=== PATIENT | male | born 1945 | race Caucasian/White ===

== ENCOUNTER 2019-08-27 09:32 | Emergency (ER) | payer MEDICARE, OTHER ==
[2019-08-27] MEDS ORDERED: Aspirin 81 MG Tab.Chew PO ONE (09:38)
--- NOTE | 2019-08-27 09:56 | EDM.PDOC ---
ED HPI GENERAL MEDICAL PROBLEM - General Stated Complaint: CHEST PAIN Time Seen by Provider: 08/27/19 09:32 Source of Information: Reports: Patient History Limitations: Reports: No Limitations - History of Present Illness INITIAL COMMENTS - FREE TEXT/NARRATIVE: Patient presents with pressure in chest that comes with exertion and goes away with rest. He has noticed this for about two months. At that time he could walk 5 blocks before it would present but has been slowly worsening. Yesterday and today he felt the pressure after less than one block. It still goes away with rest. He still had mild pain in the chest on arrival to ER but is gone now. He denies pain in neck, jaw, arms or shoulders. He says this is the same way he felt in 2005 when he had to have stents placed. He says he didn't have an RI at that time but he did have an RI in 1990 and an angioplasty without stents. He has also felt lightheaded the past two months. He has diabetes with diabetic neuropathy in his legs and they get weak and achy in anterior thighs with walking short to moderate distances. He last saw his PCP two months ago. - Related Data Allergies Allergy/AdvReac Type Severity Reaction Status Date / Time ceftriaxone sodium Allergy Nausea and Verified 08/27/19 10:01 [From Rocephin] Vomiting cephalexin Allergy Nausea and Verified 08/27/19 10:01 Vomiting clindamycin HCl Allergy Hives Verified 08/27/19 10:01 [From Cleocin] clindamycin palmitate HCl Allergy Hives Verified 08/27/19 10:01 [From Cleocin] clindamycin phosphate Allergy Hives Verified 08/27/19 10:01 [From Cleocin] gentamicin [Gentamicin] Allergy Hives Verified 08/27/19 10:01 Home Meds: Home Meds Aspirin [Halfprin] 162 mg PO BRK 12/02/14 [History] Cholecalciferol (Vitamin D3) [Vitamin D3] 2,000 unit PO DAILY 12/02/14 [History] Dutasteride [Avodart] 0.5 mg PO BEDTIME 12/02/14 [History] Gabapentin [Neurontin] 300 mg PO TID 12/02/14 [History] Insulin Glarg,Human.Rec.Analog [LantUS Solostar] 30 units SUBCUT 0900 12/02/14 [ History] Losartan Potassium [Cozaar] 100 mg PO 0900 12/02/14 [History] [place]-3 Fatty Acids [[place]-3] 1,000 mg PO BID 12/02/14 [History] Potassium Chloride [Klor-Con 10] 10 meq PO WITHBREAKFAST 12/02/14 [History] Tamsulosin [Flomax] 0.8 mg PO DAILY 12/02/14 [History] Vitamin B6-pyridOXINE 50 mg PO DAILY 12/02/14 [History] amLODIPine [Norvasc] 10 mg PO DAILY 12/02/14 [History] metFORMIN [Glucophage] 500 mg PO BIDMEALS 12/02/14 [History] hydroCHLOROthiazide [Hydrochlorothiazide] 25 mg PO DAILY 01/12/18 [History] Carbidopa/Levodopa [Sinemet 25-100 mg Tablet] 1.5 tab PO 0600,1000,1400,1800 11/07 [History] ClonazePAM [KlonoPIN] 0.5 mg PO BEDTIME PRN 08/27/19 [History] Docusate Sodium [Colace] 100 mg PO BEDTIME 08/27/19 [History] Docusate Sodium [Colace] 200 mg PO 0800 08/27/19 [History] Ferrous Sulfate [Ferosul] 325 mg PO Q48H 08/27/19 [History] Rosuvastatin [Crestor] 5 mg PO DAILY 08/27/19 [History] Spironolactone [Aldactone] 12.5 mg PO DAILY 08/27/19 [History] calcium polycarbophiL [Fibercon] 2,500 mg PO DAILY 08/27/19 [History] carvediloL [Coreg] 12.5 mg PO BID 08/27/19 [History] Past Medical History HEENT History: Reports: Sinusitis Cardiovascular History: Reports: CAD, High Cholesterol, Hypertension Respiratory History: Reports: Bronchitis, Recurrent, Pneumonia, Recurrent Genitourinary History: Reports: Prostate Disorder Musculoskeletal History: Reports: Back Pain, Chronic, Fracture Neurological History: Reports: TIA Endocrine/Metabolic History: Reports: Diabetes, Type II - Infectious Disease History Infectious Disease History: Reports: Chicken Pox, Measles, Mumps, Rubella - Past Surgical History Musculoskeletal Surgical History: Reports: Arthroscopic Procedure, Joint Replacement Social & Family History - Caffeine Use Caffeine Use: Reports: Soda ED ROS GENERAL - Review of Systems Review Of Systems: See Below Constitutional: Denies: Fever, Chills, Malaise, Weakness, Diaphoresis HEENT: Reports: No Symptoms Respiratory: Reports: Shortness of Breath, Cough (chronic) Cardiovascular: Reports: Chest Pain, Blood Pressure Problem, Lightheadedness. Denies: Syncope GI/Abdominal: Reports: Constipation (from his Parkinson meds). Denies: Abdominal Pain, Diarrhea, Nausea, Vomiting : Denies: Dysuria, Flank Pain Musculoskeletal: Denies: Neck Pain, Shoulder Pain, Arm Pain, Back Pain, Hand Pain, Foot Pain Skin: Denies: Cyanosis, Jaundice, Mottled, Pallor, Diaphoresis Neurological: Denies: Confusion, Dizziness, Headache, Seizure, Syncope, Trouble Speaking, Difficulty Walking Psychiatric: Denies: Agitation, Anxiety, Confusion ED EXAM, GENERAL - Physical Exam Exam: See Below Exam Limited By: No Limitations General Appearance: Alert, WD/WN, No Apparent Distress Eye Exam: Bilateral Eye: EOMI, Normal Inspection, PERRL Ears: Normal External Exam, Hearing Grossly Normal Nose: Normal Inspection, No Blood Throat/Mouth: Normal Inspection, Normal Lips, Normal Voice, No Airway Compromise Head: Atraumatic, Normocephalic Neck: Normal Inspection, Full Range of Motion Respiratory/Chest: No Respiratory Distress, Lungs Clear, Normal Breath Sounds, No Accessory Muscle Use Cardiovascular: Regular Rate, Rhythm, No Murmur GI/Abdominal: Normal Bowel Sounds, Soft, Non-Tender, No Organomegaly, No Distention, No Abnormal Bruit Back Exam: Normal Inspection, Full Range of Motion. No: CVA Tenderness (L), CVA Tenderness (R) Extremities: Normal Inspection, Normal Range of Motion Neurological: Alert, Oriented, Normal Cognition, No Motor/Sensory Deficits Psychiatric: Normal Affect, Normal Mood Skin Exam: Warm, Dry, Intact, Normal Color, No Rash Course - Vital Signs Last Recorded V/S: Last Vital Signs Temp 97.5 F 08/27/19 11:12 Pulse 59 L 08/27/19 11:12 Resp 14 08/27/19 11:12 BP 160/63 H 08/27/19 11:12 Pulse Ox 97 08/27/19 11:12 - Orders/Labs/Meds Orders: Active Orders 24 hr Category Date Time Status EKG Documentation Completion [RC] ASDIRECTED Care 08/27/19 09:39 Active EKG 12 Lead [EK] Stat Ther 08/27/19 09:30 Ordered Labs: Laboratory Tests 08/27/19 08/27/19 Range/Units 10:00 10:00 WBC 5.33 (5.00-10.00) 10^3/uL RBC 4.12 L (4.50-6.00) 10^6/uL Hgb 13.2 (13.0-17.0) g/dL Hct 39.3 L (40.0-52.0) % MCV 95.4 H (82.0-92.0) fL MCH 32.0 H (27.0-31.0) pg MCHC 33.6 (32.0-36.0) g/dL RDW 12.5 (11.5-14.5) % Plt Count 187 (150-400) 10^3/uL MPV 9.8 (7.4-10.4) fL Immature Gran % (Auto) 0.0 (0.0-5.0) % Neut % (Auto) 63.2 (50.0-70.0) % Lymph % (Auto) 22.5 (20.0-40.0) % [place] % (Auto) 9.8 H (2.0-8.0) % Eos % (Auto) 3.6 H (1.0-3.0) % Baso % (Auto) 0.9 (0.0-1.0) % Neut # (Auto) 3.37 (2.50-7.00) 10^3/uL Lymph # (Auto) 1.20 (1.00-4.00) 10^3/uL [place] # (Auto) 0.52 (0.10-0.80) 10^3/uL Eos # (Auto) 0.19 (0.10-0.30) 10^3/uL Baso # (Auto) 0.05 (0.00-0.10) 10^3/uL Immature Gran # (Auto) 0.00 (0.00-0.50) 10^3/uL Sodium 141 (136-145) mmol/L Potassium 4.1 (3.3-5.3) mmol/L Chloride 103 (98-115) mmol/L Carbon Dioxide 26.1 (21.0-32.0) mmol/L Anion Gap 16.0 H (5-15) mmol/L BUN 17 (6-25) mg/dL Creatinine 0.82 (0.51-1.17) mg/dL Est Cr Clr Drug Dosing 80.37 mL/min Estimated GFR (MDRD) > 60 mL/min Glucose 153 H (75 - 99) mg/dL Calcium 9.0 (8.7-10.3) mg/dL Total Bilirubin 0.4 (0.2-1.0) mg/dL AST 14 L (15-37) U/L ALT 14 (12-78) U/L Alkaline Phosphatase 54 (46-116) IU/L Troponin I 0.10 H* (0.00-0.070) ng/mL Total Protein 7.2 (6.4-8.2) g/dL Albumin 3.89 (3.00-4.80) g/dL Meds: Medications Discontinued Medications Generic Name Dose Route Start Last Admin Trade Name Freq PRN Reason Stop Dose Admin Aspirin 324 mg 08/27/19 09:38 08/27/19 09:43 Aspirin PO 08/27/19 09:39 324 mg ONETIME ONE Administration Carbidopa/Levodopa 1.5 tab 08/27/19 11:18 08/27/19 11:35 Sinemet 25-100 Mg PO 08/27/19 11:19 1.5 tab ONETIME ONE Administration Carbidopa/Levodopa 1.5 tab 08/27/19 13:56 Sinemet 25-100 Mg PO 08/27/19 13:57 ONETIME ONE - Re-Assessments/Exams Free Text/Narrative Re-Assessment/Exam: 08/27/19 10:12 Aspirin 324 mg chewable was given on arrival. EKG looks okay with just a mild 1st degree AV block. He has inverted T-waves in III, AVF unchanged from 2018 on comparison. 08/27/19 11:22 Troponin is 0.10. Discussed findings and recommendations with patient and will transfer to [facility]. Discussed case with Dr. Awad, hospitalist, who accepted for transfer. Patient remains asymptomatic currently. 08/27/19 14:51 Patient just left our ER for transfer to [facility]. He has been asymptomatic during the delay. We called [facility] 3 times to check on status and were informed they didn't have any space for him unless we felt he was unstable and should be taken to the ER there. We were just thinking we could recheck troponin since he has been here so long but then they called with available bed and he was transferred. Departure - Departure Time of Disposition: 11:24 Disposition: DC/Tfer to Acute Hospital 02 Reason for Transfer *Q: Other (evaluation and likely angiogram) Condition: Good Clinical Impression: NSTEMI (non-ST elevated myocardial infarction), Unstable angina Referrals: Farrah Sarmiento MD [Primary Care Provider] - Sepsis Event Note - Focused Exam Vital Signs: Vital Signs Temp Pulse Resp BP Pulse Ox 08/27/19 11:12 97.5 F 59 L 14 160/63 H 97 08/27/19 10:40 67 20 139/50 L 96 08/27/19 10:25 61 16 114/49 L 96 08/27/19 10:15 62 14 137/56 L 95 08/27/19 09:55 61 19 128/52 L 94 L 08/27/19 09:37 98.6 F 66 19 144/58 H 95 Date Exam was Performed: 08/27/19 Time Exam was Performed: 14:51 - My Orders Last 24 Hours: My Active Orders 08/27/19 09:30 EKG 12 Lead [EK] Stat 08/27/19 09:39 EKG Documentation Completion [RC] ASDIRECTED - Assessment/Plan Last 24 Hours: My Active Orders 08/27/19 09:30 EKG 12 Lead [EK] Stat 08/27/19 09:39 EKG Documentation Completion [RC] ASDIRECTED
[2019-08-27 10:33] LABS: CHLORIDE,CL 103 mmol/L (98-115); SODIUM,NA 141 mmol/L (136-145)
[2019-08-27 11:13] VITALS: BP 160/63; PULSE 59
[2019-08-27] MEDS ORDERED: Carbidopa/Levodopa 25-100 MG Tab PO ONE ×2 (11:18→13:56)
== END 2019-08-27 14:30 ==
LOC: KA.ED 09:32
DX: I21.4 Non-ST elevation (NSTEMI) myocardial infarction (principal); I25.110 Atherosclerotic heart disease of native coronary artery with unstable angina pectoris; E78.00 Pure hypercholesterolemia, unspecified; I10 Essential (primary) hypertension; E11.9 Type 2 diabetes mellitus without complications; Z86.73 Personal history of transient ischemic attack (TIA), and cerebral infarction without residual deficits; Z88.1 Allergy status to other antibiotic agents; Z88.8 Allergy status to other drugs, medicaments and biological substances; Z79.82 Long term (current) use of aspirin; Z79.4 Long term (current) use of insulin; Z79.899 Other long term (current) drug therapy
CPT/HCPCS: 36415; 80053; 84484; 85025; 93005; 99284; 99285; A9270

== ENCOUNTER 2020-02-29 08:51 | Inpatient (IN) | payer MEDICARE, OTHER ==
[2020-03-01] MEDS ORDERED: Glucagon,Human Recombinant 1 MG Vial IM PRN (17:48)
[2020-03-01] MEDS ORDERED: 50% Dextrose in Water 50 ML Syringe IV PRN (17:48)
[2020-03-01] MEDS: Ferrous Sulfate 325 MG Tab PO SCH (19:10)
[2020-03-01] MEDS: Carbidopa/Levodopa 25-100 MG Tab PO SCH (19:10)
[2020-03-01] MEDS: Carvedilol 12.5 MG Tab PO SCH (19:11)
[2020-03-01] MEDS: Tamsulosin 0.4 MG Cap.ER PO SCH (20:17)
[2020-03-01] MEDS: Gabapentin 300 MG Cap PO SCH (20:17)
[2020-03-01] MEDS: Dutasteride 0.5 MG Cap PO SCH (20:26)
[2020-03-01] MEDS: Rosuvastatin 5 MG Tab PO SCH (20:27)
[2020-03-02] MEDS: Acetaminophen/oxyCODONE 325-5 MG Tab PO PRN ×4 (02:51→21:37)
[2020-03-02] MEDS: Carbidopa/Levodopa 25-100 MG Tab PO SCH ×4 (05:50→17:55)
[2020-03-02] MEDS: Hydrochlorothiazide 25 MG Tab PO SCH (08:36)
[2020-03-02] MEDS: Calcium Polycarbophil 625 MG Tab PO SCH (08:36)
[2020-03-02] MEDS: Docusate Sodium 100 MG Cap PO SCH (08:36)
[2020-03-02] MEDS: Cholecalciferol (Vitamin D3) 25 MCG Tab PO SCH (08:37)
[2020-03-02] MEDS: Insulin Glargine,Human Rec. Analog 100 Units/ML 3 ML Pen SUBCUT SCH (08:38)
[2020-03-02] MEDS: Aspirin 81 MG Tab.Chew PO SCH (08:38)
[2020-03-02] MEDS: amLODIPine 5 MG Tab PO SCH (08:40)
[2020-03-02] MEDS: Carvedilol 12.5 MG Tab PO SCH ×2 (08:41→17:55)
[2020-03-02] MEDS: Losartan 25 MG Tab PO SCH (08:41)
--- NOTE | 2020-03-02 10:15 | PCM.HP.2 ---
H&P History of Present Illness - General Date of Service: 03/02/20 Admit Problem/Dx: Admission Diagnosis/Problem Admission Diagnosis/Problem Weakness Lower Back Pain Score (Numeric/FACES): 4 - Related Data Allergies/Adverse Reactions: Allergies Allergy/AdvReac Type Severity Reaction Status Date / Time ceftriaxone sodium Allergy Nausea and Verified 02/28/20 16:54 [From Rocephin] Vomiting cephalexin Allergy Nausea and Verified 02/28/20 16:54 Vomiting clindamycin HCl Allergy Hives Verified 02/28/20 16:54 [From Cleocin] clindamycin palmitate HCl Allergy Hives Verified 02/28/20 16:54 [From Cleocin] clindamycin phosphate Allergy Hives Verified 02/28/20 16:54 [From Cleocin] gentamicin [Gentamicin] Allergy Hives Verified 02/28/20 16:54 Home Medications: Home Meds Cholecalciferol (Vitamin D3) [Vitamin D3] 2,000 unit PO DAILY 12/02/14 [History] Dutasteride [Avodart] 0.5 mg PO BEDTIME 12/02/14 [History] Insulin Glarg,Human.Rec.Analog [LantUS Solostar] 30 units SUBCUT DAILY 12/02/14 [History] [place]-3 Fatty Acids [[place]-3] 1,000 mg PO DAILY 12/02/14 [History] Tamsulosin [Flomax] 0.8 mg PO BEDTIME 12/02/14 [History] Vitamin B6-pyridOXINE 50 mg PO DAILY 12/02/14 [History] amLODIPine [Norvasc] 10 mg PO DAILY 12/02/14 [History] metFORMIN [Glucophage] 500 mg PO BIDMEALS 12/02/14 [History] hydroCHLOROthiazide [Hydrochlorothiazide] 12.5 mg PO DAILY 01/12/18 [History] Carbidopa/Levodopa [Sinemet 25-100 mg Tablet] 1.5 tab PO 0630,1000,1400,1800 08/27/19 [History] Docusate Sodium [Colace] 200 mg PO DAILY 08/27/19 [History] Ferrous Sulfate [Ferosul] 325 mg PO Q48H 08/27/19 [History] Rosuvastatin [Crestor] 5 mg PO BEDTIME 08/27/19 [History] carvediloL [Coreg] 12.5 mg PO BIDMEALS 08/27/19 [History] Gabapentin [Neurontin] 300 mg PO BEDTIME 02/28/20 [History] Losartan [Cozaar] 25 mg PO DAILY 02/28/20 [History] Sennosides/Docusate Sodium [Senna-S] 1 tab PO BEDTIME 02/28/20 [History] Aspirin 81 mg PO DAILY 03/01/20 [History] calcium polycarbophiL [Fiber Tabs] 1,250 mg PO DAILY 03/01/20 [History] oxyCODONE HCl/Acetaminophen [Oxycodone-Acetaminophen 5-325] 1 - 2 tab PO Q4H PRN 03/01/20 [History] Past Medical History HEENT History: Reports: Cataract, Sinusitis Cardiovascular History: Reports: Bypass, CAD, High Cholesterol, Hypertension Other Cardiovascular History: CABG x3 done in August 29, 2019 Respiratory History: Reports: Bronchitis, Recurrent, Pneumonia, Recurrent, Sleep Apnea Other Respiratory History: uses CPAP Gastrointestinal History: Reports: Chronic Constipation Genitourinary History: Reports: Prostate Disorder Musculoskeletal History: Reports: Back Pain, Chronic, Fracture Neurological History: Reports: Parkinson's, TIA Psychiatric History: Reports: Anxiety Endocrine/Metabolic History: Reports: Diabetes, Type II, Obesity/BMI 30+ Hematologic History: Reports: Anticoagulation Therapy, Iron Deficiency Immunologic History: Reports: None Oncologic (Cancer) History: Reports: None Dermatologic History: Reports: None - Infectious Disease History Infectious Disease History: Reports: Chicken Pox, Measles, Mumps, Rubella - Past Surgical History HEENT Surgical History: Reports: None Cardiovascular Surgical History: Reports: Coronary Artery Bypass GI Surgical History: Reports: Appendectomy, Colonoscopy, Hernia Repair/Other Neurological Surgical History: Reports: Lumbar Spine, Spinal Fusion Musculoskeletal Surgical History: Reports: Arthroscopic Procedure, Joint Replacement, Other (See Below) Other Musculoskeletal Surgeries/Procedures:: Lumbar decompression feb 25 Social & Family History - Family History Family Medical History: No Pertinent Family History - Tobacco Use Tobacco Use Status *Q: Former Tobacco User Used Tobacco, but Quit: Yes Month/Year Tobacco Last Used: 1974 - Caffeine Use Caffeine Use: Reports: Soda Other Caffeine Use: 1 bottle a day - Recreational Drug Use Recreational Drug Use: No H&P Review of Systems - Review of Systems: Review Of Systems: See Below General: Reports: Fever (low grade), Weakness, Fatigue. Denies: Night Sweats, Diaphoresis, Decreased Appetite HEENT: Reports: No Symptoms Pulmonary: Reports: No Symptoms Cardiovascular: Reports: No Symptoms Gastrointestinal: Denies: Constipation, Diarrhea, Distension Genitourinary: Reports: No Symptoms Musculoskeletal: Reports: Other (bilateral leg pains) Skin: Reports: Bruising, Wound Psychiatric: Reports: No Symptoms Neurological: Reports: Pre-Existing Deficit, Tremors, Difficulty Walking, Weakness, Gait Disturbance. Denies: Numbness, Paresthesia, Tingling Hematologic/Lymphatic: Denies: Easy Bleeding Immunologic: Reports: No Symptoms Exam - Exam Exam: See Below - Vital Signs Vital Signs: Last Vital Signs Temp 99.5 F 03/02/20 06:39 Pulse 72 03/02/20 08:41 Resp 20 03/02/20 06:39 BP 144/57 H 03/02/20 08:41 Pulse Ox 95 03/02/20 06:39 Weight: 212 lb - Exam Quality Assessment: DVT Prophylaxis. No: Supplemental Oxygen General: Alert, Oriented, 4 HEENT: Mucosa Moist & [place] Neck: Supple, Trachea Midline, 2 Lungs: Clear to Auscultation, Normal Respiratory Effort Cardiovascular: Regular Rate, Regular Rhythm, Normal S1, Normal S2 GI/Abdominal Exam: Soft, Non-Tender. No: Distended, Guarding, Rigid, Rebound, Tender (Male) Exam: No: Rash Rectal (Males) Exam: Deferred Back Exam: Paraspinal Tenderness. No: CVA Tenderness (L), CVA Tenderness (R) Extremities: No Pedal Edema Peripheral Pulses: 0: Radial (R) (hx of cabg 08/2019), 2+: Radial (L) Skin: Wound, Incision, Other (Lumbar incision dressing intact, flank incision mild drainage mervin intact) Neuro Extensive - Mental Status: Alert, Memory Intact Neuro Extensive - Motor, Sensory, Reflexes: Abnormal Reflexes (No patella tendon reflex, present on admission, patient states baseline). No: Dysarthria, Receptive Aphasia, Expressive Aphasia, Total Aphasia, Facial palsy (L), Facial Palsy (R) DTR: 0: Patella (L), Patella (R) Psychiatric: Alert, Labile Mood - Patient Data Lab Results Last 24 hrs: Laboratory Results - last 24 hr 03/02/20 Range/Units 08:02 POC Glucose 143 H (74-100) mg/dL Result Diagrams: 03/03/20 07:12 03/03/20 07:12 Sepsis Event Note - Evaluation Sepsis Screening Result: No Definite Risk - Focused Exam Vital Signs: Vital Signs Temp Pulse Pulse Resp BP BP Pulse Ox 03/02/20 08:41 72 144/57 H 03/02/20 08:40 144/57 H 03/02/20 06:39 99.5 F 76 20 144/53 H 95 Problem List Initiated/Reviewed/Updated: Yes Orders Last 24hrs: Active Orders 24 hr Category Date Time Status Patient Status [ADT] Routine ADT 03/01/20 18:10 Active Blood Glucose Check, Bedside [RC] DAILY Care 03/02/20 07:30 Active Communication Order [RC] Care 03/01/20 18:36 Active Communication Order [RC] Care 03/01/20 18:39 Active Intake and Output [RC] 1400,2200,0600 Care 03/01/20 18:10 Active Oxygen Therapy [RC] PRN Care 03/01/20 18:10 Active RT Incentive Spirometry [RC] Q2HWA Care 03/01/20 18:30 Active Up With Assistance [RC] ASDIRECTED Care 03/01/20 18:10 Active VTE/DVT Education [RC] PER UNIT ROUTINE Care 03/01/20 18:10 Active Vital Signs [RC] 07,19 Care 03/01/20 18:10 Active PT Evaluation and Treatment [CONS] Routine Cons 03/01/20 18:10 Active [place] [employer] Diet [DIET] Diet 03/02/20 Breakfast Active Acetaminophen/oxyCODONE [Percocet 325-5 MG] Med 03/01/20 17:48 Active 1 - 2 tab PO Q4H PRN Aspirin Med 03/02/20 09:00 Active 81 mg PO DAILY Carbidopa/Levodopa [Sinemet 25-100 mg] Med 03/01/20 18:00 Active 1.5 tab PO 0630,1000,1400,1800 Cholecalciferol (Vitamin D3) [Vitamin D3] Med 03/02/20 09:00 Active 50 mcg PO DAILY Dextrose 50% in Water Med 03/01/20 17:48 Active 50 ml IV ASDIRECTED PRN Docusate Sodium [Colace] Med 03/02/20 09:00 Active 200 mg PO DAILY Docusate Sodium/Sennosides [Senna Plus] Med 03/01/20 21:00 Active 1 tab PO BEDTIME Dutasteride [Avodart] Med 03/01/20 21:00 Active 0.5 mg PO BEDTIME Ferrous Sulfate Med 03/01/20 18:00 Active 325 mg PO Q48H Gabapentin [Neurontin] Med 03/01/20 21:00 Active 300 mg PO BEDTIME Glucagon,Human Recombinant [GlucaGen] Med 03/01/20 17:48 Active 1 mg IM ASDIRECTED PRN Insulin Glarg,Human.Rec.Analog [LantUS Solostar] Med 03/02/20 09:00 Active 30 units SUBCUT DAILY Losartan [Cozaar] Med 03/02/20 09:00 Active 25 mg PO DAILY Rosuvastatin [Crestor] Med 03/01/20 21:00 Active 5 mg PO BEDTIME Tamsulosin [Flomax] Med 03/01/20 21:00 Active 0.8 mg PO BEDTIME Vitamin B6-pyridOXINE [Vitamin B6-pyridOXINE] Med 03/02/20 09:00 Pending 50 mg PO DAILY amLODIPine [Norvasc] Med 03/02/20 09:00 Active 10 mg PO DAILY calcium polycarbophiL [Fibercon] Med 03/02/20 09:00 Active 1,250 mg PO DAILY carvediloL [Coreg] Med 03/01/20 18:00 Active 12.5 mg PO BIDMEALS hydroCHLOROthiazide Med 03/02/20 09:00 Active 12.5 mg PO DAILY Resuscitation Status Routine Resus Stat 03/01/20 18:10 Ordered Medication Orders Amlodipine Besylate (Norvasc) 10 mg PO DAILY [facility] Last Admin: 03/02/20 08:40 Dose: 10 mg Documented by: ANISA Aspirin (Aspirin) 81 mg PO DAILY [facility] Last Admin: 03/02/20 08:38 Dose: 81 mg Documented by: ANISA Calcium Polycarbophil (Fibercon) 1,250 mg PO DAILY [facility] Last Admin: 03/02/20 08:36 Dose: 1,250 mg Documented by: ANISA Carbidopa/Levodopa (Sinemet 25-100 Mg) 1.5 tab PO 0630,1000,1400,1800 [facility] Last Admin: 03/02/20 10:09 Dose: 1.5 tab Documented by: Admin: 03/02/20 05:50 Dose: 1.5 tab Documented by: Admin: 03/01/20 19:10 Dose: 1.5 tab Documented by: ANISA Carvedilol (Coreg) 12.5 mg PO BIDMEALS [facility] Last Admin: 03/02/20 08:41 Dose: 12.5 mg Documented by: Admin: 03/01/20 19:11 Dose: 12.5 mg Documented by: ANISA Cholecalciferol (Vitamin D3) 50 mcg PO DAILY [facility] Last Admin: 03/02/20 08:37 Dose: 50 mcg Documented by: ANISA Dextrose/Water (Dextrose 50% In Water) 50 ml IV ASDIRECTED PRN PRN Reason: Hypoglycemia Docusate Sodium (Colace) 200 mg PO DAILY [facility] Last Admin: 03/02/20 08:36 Dose: 200 mg Documented by: ANISA Dutasteride (Avodart) 0.5 mg PO BEDTIME [facility] Last Admin: 03/01/20 20:26 Dose: 0.5 mg Documented by: BRANDON Ferrous Sulfate (Ferrous Sulfate) 325 mg PO Q48H [facility] Last Admin: 03/01/20 19:10 Dose: 325 mg Documented by: ANISA Gabapentin (Neurontin) 300 mg PO BEDTIME [facility] Last Admin: 03/01/20 20:17 Dose: 300 mg Documented by: BRANDON Glucagon (Glucagen) 1 mg IM ASDIRECTED PRN PRN Reason: Hypoglycemia Hydrochlorothiazide (Hydrochlorothiazide) 12.5 mg PO DAILY [facility] Last Admin: 03/02/20 08:36 Dose: 12.5 mg Documented by: ANISA Insulin Glargine (Lantus Solostar) 30 units SUBCUT DAILY [facility] Last Admin: 03/02/20 08:38 Dose: 30 units Documented by: ANISA Losartan Potassium (Cozaar) 25 mg PO DAILY [facility] Last Admin: 03/02/20 08:41 Dose: 25 mg Documented by: ANISA Non-Formulary Medication (Vitamin B6-Pyridoxine [Vitamin B6-Pyridoxine]) 50 mg PO DAILY [facility] Oxycodone/Acetaminophen (Percocet 325-5 Mg) 1 - 2 tab PO Q4H PRN PRN Reason: Pain Last Admin: 03/02/20 02:51 Dose: 1 tab Documented by: SANTRYA Rosuvastatin Calcium (Crestor) 5 mg PO BEDTIME [facility] Last Admin: 03/01/20 20:27 Dose: 5 mg Documented by: BRANDON Senna/Docusate Sodium (Senna Plus) 1 tab PO BEDTIME [facility] Last Admin: 03/01/20 20:17 Dose: 1 tab Documented by: BRANDON Tamsulosin HCl (Flomax) 0.8 mg PO BEDTIME [facility] Last Admin: 03/01/20 20:17 Dose: 0.8 mg Documented by: BRANDON Assessment/Plan Comment:: History of Present Illness 74 y/[facility] patient is s/p lumbar lateral interbody fusion of L2/L4 repeat decompression by Dr. Demarco Mei DOS 02/29/2020. Patient was fit with a custom fabricated TLSO and is to wear while ambulating x6 months Labs [place] 02/27; 10 WBC 8.7, Hgb/HCT 9.5/28.9 PLT 140,000 calcium 3.8 BUN 23 creatinine 1.08, Alb 3.5 Hospital course 03/02/2020; Patient is doing well, some pain in the legs as expected, ambulating with walker, BM this morning, ZACH drain pulled, using TLSO, Running low-grade fevers however this is baseline according to [place] EMR, encouraged to use spirometer, Nurses reporting mild sundowning confustion/hallucinations Primary SNF problems S/P Lumbar decompression surgery, DOS 02/29/2020. Pain, hydrocodone Chronic SNF problems T2DM; A1c 6.3% Lantus, Metformin, FSBS CAD, CABG, August/2019, ASA, completed rehab, successful Hypertension, HCTZ, amlodipine, Coreg, ARB Hyperlipidemia, statin Venous insufficiency Obstructive sleep apnea, home CPAP Insomnia, clonazepam Parkinson's disease, carbidopa levodopa BPH, tamsulosin, Avodart Rheumatoid arthritis Disposition/overall plan --Patient meets qualification for nursing home here at [place], PT/OT --Goals, OT goals, bathing, bed mobility, toileting and transfers activity, TLSO precautions dressings --Spirometer 10x every hour while awake --Change dressing only if saturated, Shower with dressing --Stable removal ~Feb --Aquacel on suture line DC March 07 --DVT prophylaxis teds, ASA, Ambulation --Add Movantik for COT prevention --Delirium prophylaxis, add Rozerem, and ear plugs PRN --Labs Tuesday --Aquacel dressing to be removed on March 07, apply dry gauze and change daily --Follow up Dr Reid in 1-2 weeks, call on tuesday (03-03-20) to set up an appointment --Code Status, full code --Contacts, Spouse, Ivonne - Mortality Measure Prognosis:: Good
[2020-03-02] MEDS: Naloxegol Oxalate 25 MG Tab PO SCH (13:31)
[2020-03-02] MEDS: Tamsulosin 0.4 MG Cap.ER PO SCH (20:22)
[2020-03-02] MEDS: Gabapentin 300 MG Cap PO SCH (20:22)
[2020-03-02] MEDS: Dutasteride 0.5 MG Cap PO SCH (20:25)
[2020-03-02] MEDS: Rosuvastatin 5 MG Tab PO SCH (20:26)
[2020-03-03] MEDS: Acetaminophen/oxyCODONE 325-5 MG Tab PO PRN ×4 (06:00→21:36)
[2020-03-03] MEDS: Carbidopa/Levodopa 25-100 MG Tab PO SCH ×4 (06:00→17:37)
[2020-03-03 07:58] LABS: ANION GAP 9.6 mmol/L (5-15); CHLORIDE,CL 100 mmol/L (98-115); SODIUM,NA 138 mmol/L (136-145)
[2020-03-03] MEDS: Carvedilol 12.5 MG Tab PO SCH ×2 (08:12→17:41)
[2020-03-03] MEDS: amLODIPine 5 MG Tab PO SCH (08:13)
[2020-03-03] MEDS: Losartan 25 MG Tab PO SCH (08:13)
[2020-03-03] MEDS: Docusate Sodium 100 MG Cap PO SCH (08:13)
[2020-03-03] MEDS: Cholecalciferol (Vitamin D3) 25 MCG Tab PO SCH (08:13)
[2020-03-03] MEDS: Calcium Polycarbophil 625 MG Tab PO SCH (08:13)
[2020-03-03] MEDS: Naloxegol Oxalate 25 MG Tab PO SCH (08:14)
[2020-03-03] MEDS: Aspirin 81 MG Tab.Chew PO SCH (08:14)
[2020-03-03] MEDS: Hydrochlorothiazide 25 MG Tab PO SCH (08:15)
[2020-03-03] MEDS: Insulin Glargine,Human Rec. Analog 100 Units/ML 3 ML Pen SUBCUT SCH (08:16)
[2020-03-03] MEDS: VITAMIN B6 PO SCH (11:29)
[2020-03-03] MEDS: Ferrous Sulfate 325 MG Tab PO SCH (17:37)
[2020-03-03] MEDS: Rosuvastatin 5 MG Tab PO SCH (20:12)
[2020-03-03] MEDS: Gabapentin 300 MG Cap PO SCH (20:12)
[2020-03-03] MEDS: Tamsulosin 0.4 MG Cap.ER PO SCH (20:12)
[2020-03-03] MEDS: Dutasteride 0.5 MG Cap PO SCH (20:44)
[2020-03-04] MEDS: Acetaminophen/oxyCODONE 325-5 MG Tab PO PRN ×4 (02:53→20:30)
[2020-03-04] MEDS: Carbidopa/Levodopa 25-100 MG Tab PO SCH ×4 (05:59→17:49)
[2020-03-04] MEDS: Carvedilol 12.5 MG Tab PO SCH ×2 (08:11→17:49)
[2020-03-04] MEDS: Losartan 25 MG Tab PO SCH (08:12)
[2020-03-04] MEDS: Naloxegol Oxalate 25 MG Tab PO SCH (08:12)
[2020-03-04] MEDS: Hydrochlorothiazide 25 MG Tab PO SCH (08:13)
[2020-03-04] MEDS: Calcium Polycarbophil 625 MG Tab PO SCH (08:14)
[2020-03-04] MEDS: amLODIPine 5 MG Tab PO SCH (08:14)
[2020-03-04] MEDS: Insulin Glargine,Human Rec. Analog 100 Units/ML 3 ML Pen SUBCUT SCH (08:14)
[2020-03-04] MEDS: Docusate Sodium 100 MG Cap PO SCH (08:14)
[2020-03-04] MEDS: Aspirin 81 MG Tab.Chew PO SCH (08:14)
[2020-03-04] MEDS: Cholecalciferol (Vitamin D3) 25 MCG Tab PO SCH (08:14)
[2020-03-04] MEDS: VITAMIN B6 PO SCH (10:09)
[2020-03-04] MEDS: Dutasteride 0.5 MG Cap PO SCH (20:31)
[2020-03-04] MEDS: Rosuvastatin 5 MG Tab PO SCH (20:31)
[2020-03-04] MEDS: Tamsulosin 0.4 MG Cap.ER PO SCH (20:31)
[2020-03-04] MEDS: Gabapentin 300 MG Cap PO SCH (20:32)
[2020-03-05] MEDS: Acetaminophen/oxyCODONE 325-5 MG Tab PO PRN ×5 (00:49→21:34)
[2020-03-05] MEDS: Carbidopa/Levodopa 25-100 MG Tab PO SCH ×4 (07:43→18:04)
[2020-03-05] MEDS: Carvedilol 12.5 MG Tab PO SCH ×2 (08:54→18:05)
[2020-03-05] MEDS: Cholecalciferol (Vitamin D3) 25 MCG Tab PO SCH (08:55)
[2020-03-05] MEDS: Aspirin 81 MG Tab.Chew PO SCH (08:55)
[2020-03-05] MEDS: Docusate Sodium 100 MG Cap PO SCH (08:57)
[2020-03-05] MEDS: amLODIPine 5 MG Tab PO SCH (08:58)
[2020-03-05] MEDS: Naloxegol Oxalate 25 MG Tab PO SCH (08:58)
[2020-03-05] MEDS: Calcium Polycarbophil 625 MG Tab PO SCH (09:04)
[2020-03-05] MEDS: Insulin Glargine,Human Rec. Analog 100 Units/ML 3 ML Pen SUBCUT SCH (09:05)
[2020-03-05] MEDS: Losartan 25 MG Tab PO SCH (09:07)
[2020-03-05] MEDS: VITAMIN B6 PO SCH (09:09)
[2020-03-05] MEDS: Hydrochlorothiazide 25 MG Tab PO SCH (09:16)
[2020-03-05] MEDS: Ferrous Sulfate 325 MG Tab PO SCH (18:04)
[2020-03-05] MEDS: Dutasteride 0.5 MG Cap PO SCH (20:07)
[2020-03-05] MEDS: Tamsulosin 0.4 MG Cap.ER PO SCH (20:07)
[2020-03-05] MEDS: Rosuvastatin 5 MG Tab PO SCH (20:07)
[2020-03-05] MEDS: Gabapentin 300 MG Cap PO SCH (20:07)
[2020-03-06] MEDS: Acetaminophen/oxyCODONE 325-5 MG Tab PO PRN ×4 (01:34→20:55)
[2020-03-06] MEDS: Carbidopa/Levodopa 25-100 MG Tab PO SCH ×4 (07:29→18:20)
[2020-03-06] MEDS: Calcium Polycarbophil 625 MG Tab PO SCH (08:32)
[2020-03-06] MEDS: Carvedilol 12.5 MG Tab PO SCH ×2 (08:32→18:19)
[2020-03-06] MEDS: Cholecalciferol (Vitamin D3) 25 MCG Tab PO SCH (08:33)
[2020-03-06] MEDS: Naloxegol Oxalate 25 MG Tab PO SCH (08:35)
[2020-03-06] MEDS: Docusate Sodium 100 MG Cap PO SCH (08:35)
[2020-03-06] MEDS: Aspirin 81 MG Tab.Chew PO SCH (08:36)
[2020-03-06] MEDS: amLODIPine 5 MG Tab PO SCH (08:37)
[2020-03-06] MEDS: Losartan 25 MG Tab PO SCH (08:38)
[2020-03-06] MEDS: Hydrochlorothiazide 25 MG Tab PO SCH (08:39)
[2020-03-06] MEDS: VITAMIN B6 PO SCH (08:41)
[2020-03-06] MEDS: Insulin Glargine,Human Rec. Analog 100 Units/ML 3 ML Pen SUBCUT SCH (08:41)
[2020-03-06] MEDS: Rosuvastatin 5 MG Tab PO SCH (20:55)
[2020-03-06] MEDS: Gabapentin 300 MG Cap PO SCH (20:55)
[2020-03-06] MEDS: Dutasteride 0.5 MG Cap PO SCH (20:55)
[2020-03-06] MEDS: Tamsulosin 0.4 MG Cap.ER PO SCH (20:59)
[2020-03-07] MEDS: Acetaminophen/oxyCODONE 325-5 MG Tab PO PRN ×3 (05:40→19:49)
[2020-03-07] MEDS: Carbidopa/Levodopa 25-100 MG Tab PO SCH ×4 (05:58→18:25)
[2020-03-07] MEDS: Cholecalciferol (Vitamin D3) 25 MCG Tab PO SCH (08:24)
[2020-03-07] MEDS: Naloxegol Oxalate 25 MG Tab PO SCH (08:24)
[2020-03-07] MEDS: VITAMIN B6 PO SCH (08:24)
[2020-03-07] MEDS: Calcium Polycarbophil 625 MG Tab PO SCH (08:24)
[2020-03-07] MEDS: amLODIPine 5 MG Tab PO SCH (08:24)
[2020-03-07] MEDS: Hydrochlorothiazide 25 MG Tab PO SCH (08:25)
[2020-03-07] MEDS: Docusate Sodium 100 MG Cap PO SCH (08:25)
[2020-03-07] MEDS: Carvedilol 12.5 MG Tab PO SCH ×2 (08:25→18:25)
[2020-03-07] MEDS: Losartan 25 MG Tab PO SCH (08:25)
[2020-03-07] MEDS: Insulin Glargine,Human Rec. Analog 100 Units/ML 3 ML Pen SUBCUT SCH (08:28)
[2020-03-07] MEDS ORDERED: Aspirin 81 MG Tab.Chew PO SCH (09:00)
--- NOTE | 2020-03-07 14:06 | PCM.PN ---
- General Info Date of Service: 03/07/20 Admission Dx/Problem (Free Text): s/p LLIF/PSR L2-4, left L2/3 decompression. Patient is in swing bed at the [facility] and seen at bedside today. Subjective Update: Pee is status post LLIF/PSR L2-4 left L2/[address] Pal approximately 10 days out. He is doing very well. He reports his pain has been well controlled. His leg pain is much improved. His preoperative radicular pain he feels is mostly resolved. Working with therapy for his ambulation and strength. He reports he walks about 4 times a day and is tolerating this well. His main difficulty is sleeping at night he feels this is related to some anxiety. His primary care is addressing this. He is not having any problems with his incisions and they have been clean and dry. He is tentatively scheduled to go home this coming Tuesday. Functional Status: Reports: Pain Controlled, Tolerating Diet, Ambulating, Urinating - Review of Systems Musculoskeletal: Reports: Other (Motors are intact. Strengthening left quad is improving 4/5.) Skin: Reports: Other (Lumbar incision is benign with mariza in place no drainage no redness. His lateral oblique incision is also clean dry intact with no redness mariza are in place. Dressings are dry.) Neurological: Reports: No Symptoms. Denies: Paresthesia Psychiatric: Reports: Anxiety - Patient Data Vitals - Most Recent: Last Vital Signs Temp 97.5 F 03/07/20 09:00 Pulse 72 03/07/20 09:00 Resp 18 03/07/20 09:00 BP 124/59 L 03/07/20 09:00 Pulse Ox 97 03/07/20 09:00 Weight - Most Recent: 212 lb I&O - Last 24 Hours: Intake & Output 03/06/20 03/07/20 03/07/20 22:59 06:59 14:59 Intake Total 300 300 Output Total 700 900 Balance -400 -600 Lab Results Last 24 Hours: Laboratory Results - last 24 hr 03/07/20 Range/Units 07:39 POC Glucose 166 H (74-100) mg/dL Med Orders - Current: Current Medications Amlodipine Besylate (Norvasc) 10 mg PO DAILY [facility] Last Admin: 03/07/20 08:24 Dose: 10 mg Documented by: Aspirin (Ecotrin) 325 mg PO DAILY [facility] Calcium Polycarbophil (Fibercon) 1,250 mg PO DAILY [facility] Last Admin: 03/07/20 08:24 Dose: 1,250 mg Documented by: Carbidopa/Levodopa (Sinemet 25-100 Mg) 1.5 tab PO 0630,1000,1400,1800 [facility] Last Admin: 03/07/20 13:30 Dose: 1.5 tab Documented by: Carvedilol (Coreg) 12.5 mg PO BIDMEALS [facility] Last Admin: 03/07/20 08:25 Dose: 12.5 mg Documented by: Cholecalciferol (Vitamin D3) 50 mcg PO DAILY [facility] Last Admin: 03/07/20 08:24 Dose: 50 mcg Documented by: Dextrose/Water (Dextrose 50% In Water) 50 ml IV ASDIRECTED PRN PRN Reason: Hypoglycemia Docusate Sodium (Colace) 200 mg PO DAILY [facility] Last Admin: 03/07/20 08:25 Dose: 200 mg Documented by: Dutasteride (Avodart) 0.5 mg PO BEDTIME [facility] Last Admin: 03/06/20 20:55 Dose: 0.5 mg Documented by: Ferrous Sulfate (Ferrous Sulfate) 325 mg PO Q48H [facility] Last Admin: 03/05/20 18:04 Dose: 325 mg Documented by: Gabapentin (Neurontin) 300 mg PO BEDTIME [facility] Last Admin: 03/06/20 20:55 Dose: 300 mg Documented by: Glucagon (Glucagen) 1 mg IM ASDIRECTED PRN PRN Reason: Hypoglycemia Hydrochlorothiazide (Hydrochlorothiazide) 12.5 mg PO DAILY [facility] Last Admin: 03/07/20 08:25 Dose: 12.5 mg Documented by: Insulin Glargine (Lantus Solostar) 30 units SUBCUT DAILY [facility] Last Admin: 03/07/20 08:28 Dose: 30 unit Documented by: Losartan Potassium (Cozaar) 25 mg PO DAILY [facility] Last Admin: 03/07/20 08:25 Dose: 25 mg Documented by: Naloxegol (Movantik) 25 mg PO DAILY [facility] Last Admin: 03/07/20 08:24 Dose: 25 mg Documented by: Oxycodone/Acetaminophen (Percocet 325-5 Mg) 1 - 2 tab PO Q4H PRN PRN Reason: Pain Last Admin: 03/07/20 05:40 Dose: 2 tab Documented by: Vitamin B-6 ( Pyridoxine) 50mg - Ptom 1 each PO DAILY [facility] Last Admin: 03/07/20 08:24 Dose: 1 each Documented by: Ramelteon (Rozerem) 8 mg PO BEDTIME [facility] Last Admin: 03/06/20 20:55 Dose: 8 mg Documented by: Rosuvastatin Calcium (Crestor) 5 mg PO BEDTIME [facility] Last Admin: 03/06/20 20:55 Dose: 5 mg Documented by: Senna/Docusate Sodium (Senna Plus) 1 tab PO BEDTIME [facility] Last Admin: 03/06/20 20:55 Dose: 1 tab Documented by: Tamsulosin HCl (Flomax) 0.8 mg PO BEDTIME [facility] Last Admin: 03/06/20 20:59 Dose: 0.8 mg Documented by: Zolpidem Tartrate (Ambien) 5 mg PO BEDTIME [facility] Discontinued Medications Aspirin (Aspirin) 81 mg PO DAILY [facility] Last Admin: 03/06/20 08:36 Dose: 81 mg Documented by: Aspirin (Aspirin) 324 mg PO DAILY [facility] Last Admin: 03/07/20 08:24 Dose: 324 mg Documented by: - Exam General: Alert, Oriented Back Exam: Paraspinal Tenderness Extremities: Normal Inspection, Normal Range of Motion, Other (Motors are 5 out of 5 throughout with the exception left quad strength is 4 out of 5. This is improved from his preoperative status) Peripheral Pulses: 1+: Dorsalis Pedis (L), Dorsalis Pedis (R) Skin: Other (Both lumbar and lateral oblique incisions are benign. Incisions are clean dry intact. No redness. No drainage. Mariza are in place.) Wound/Incisions: Healing Well, Dressing Dry and Intact, No Drainage. No: Erythema Neurological: No New Focal Deficit Psy/Mental Status: Alert, Normal Affect, Normal Mood Sepsis Event Note - Evaluation Sepsis Screening Result: No Definite Risk - Focused Exam Vital Signs: Vital Signs Temp Pulse Pulse Resp BP BP Pulse Ox 03/07/20 09:00 97.5 F 72 18 124/59 L 97 03/07/20 08:25 72 124/59 L 03/07/20 08:24 124/59 L - Problem List Review Problem List Initiated/Reviewed/Updated: Yes - My Orders Last 24 Hours: My Active Orders 03/07/20 13:49 Communication Order [RC] 0900,2100 Communication Order [RC] ROUTINE - Assessment Assessment:: Status post lumbar decompression and fusion L2-4. - Plan Plan:: History of Present Illness 74 y/o gentleman was admitted into [facility] PT/OT patient is s/p lumbar lateral interbody fusion of L2/L4 repeat decompression by Dr. Demarco Mei DOS 02/29/2020. Patient was fit with a custom fabricated TLSO and is to wear while ambulating x6 months Labs Springer 02/27; 10 WBC 8.7, Hgb/HCT 9.5/28.9 PLT 140,000 calcium 3.8 BUN 23 creatinine 1.08, Alb 3.5 1. Patient may ambulate to the bathroom without the use of his brace. He may sit up with the brace loosened in the chair. 2. Staple removal prior to discharge to home this coming Tuesday. 3. We will cancel his follow-up appointment next Tuesday with Dr. Reid as this visit today will take place for his visit next week. 4. Follow-up in the [place] [facility] in March. We will have new x- rays prior to his visit AP and lateral lumbar spine.
[2020-03-07] MEDS: Ferrous Sulfate 325 MG Tab PO SCH (18:25)
[2020-03-07] MEDS: Tamsulosin 0.4 MG Cap.ER PO SCH (20:55)
[2020-03-07] MEDS: Rosuvastatin 5 MG Tab PO SCH (20:56)
[2020-03-07] MEDS: Dutasteride 0.5 MG Cap PO SCH (20:56)
[2020-03-07] MEDS: Gabapentin 300 MG Cap PO SCH (20:56)
[2020-03-07] MEDS: Zolpidem 5 MG Tab PO SCH (21:09)
[2020-03-08] MEDS: Acetaminophen/oxyCODONE 325-5 MG Tab PO PRN ×4 (00:29→20:09)
[2020-03-08] MEDS: Carbidopa/Levodopa 25-100 MG Tab PO SCH ×4 (06:18→18:40)
[2020-03-08] MEDS: Carvedilol 12.5 MG Tab PO SCH ×2 (08:24→18:41)
[2020-03-08] MEDS: Cholecalciferol (Vitamin D3) 25 MCG Tab PO SCH (08:24)
[2020-03-08] MEDS: Docusate Sodium 100 MG Cap PO SCH (08:24)
[2020-03-08] MEDS: Calcium Polycarbophil 625 MG Tab PO SCH (08:24)
[2020-03-08] MEDS: Naloxegol Oxalate 25 MG Tab PO SCH (08:25)
[2020-03-08] MEDS: Hydrochlorothiazide 25 MG Tab PO SCH (08:25)
[2020-03-08] MEDS: amLODIPine 5 MG Tab PO SCH (08:25)
[2020-03-08] MEDS: Losartan 25 MG Tab PO SCH (08:25)
[2020-03-08] MEDS: Aspirin 325 MG Tab.EC PO SCH (08:25)
[2020-03-08] MEDS: VITAMIN B6 PO SCH (08:26)
[2020-03-08] MEDS: Insulin Glargine,Human Rec. Analog 100 Units/ML 3 ML Pen SUBCUT SCH (08:27)
[2020-03-08] MEDS ORDERED: Magnesium Hydroxide 400 MG/5 ML Susp 30 ML Cup PO ONE (10:29)
[2020-03-08] MEDS: metFORMIN 500 MG Tab PO SCH (18:41)
[2020-03-08] MEDS: Dutasteride 0.5 MG Cap PO SCH (18:41)
[2020-03-08] MEDS: Tamsulosin 0.4 MG Cap.ER PO SCH (18:41)
[2020-03-08] MEDS: Rosuvastatin 5 MG Tab PO SCH (20:08)
[2020-03-08] MEDS: Gabapentin 300 MG Cap PO SCH (20:08)
[2020-03-08] MEDS: Zolpidem 5 MG Tab PO SCH (21:12)
[2020-03-09] MEDS: Carbidopa/Levodopa 25-100 MG Tab PO SCH ×4 (05:36→18:05)
[2020-03-09] MEDS: Acetaminophen/oxyCODONE 325-5 MG Tab PO PRN ×3 (05:36→20:03)
[2020-03-09] MEDS ORDERED: Bisacodyl 5 MG Tab PO PRN (08:39)
[2020-03-09] MEDS: Cholecalciferol (Vitamin D3) 25 MCG Tab PO SCH (08:42)
[2020-03-09] MEDS: VITAMIN B6 PO SCH (08:42)
[2020-03-09] MEDS: Docusate Sodium 100 MG Cap PO SCH (08:42)
[2020-03-09] MEDS: Aspirin 325 MG Tab.EC PO SCH (08:43)
[2020-03-09] MEDS: Calcium Polycarbophil 625 MG Tab PO SCH (08:43)
[2020-03-09] MEDS: Carvedilol 12.5 MG Tab PO SCH ×2 (08:43→18:03)
[2020-03-09] MEDS: metFORMIN 500 MG Tab PO SCH ×2 (08:43→18:03)
[2020-03-09] MEDS: amLODIPine 5 MG Tab PO SCH (08:43)
[2020-03-09] MEDS: Naloxegol Oxalate 25 MG Tab PO SCH (08:43)
[2020-03-09] MEDS: Hydrochlorothiazide 25 MG Tab PO SCH (08:43)
[2020-03-09] MEDS: Insulin Glargine,Human Rec. Analog 100 Units/ML 3 ML Pen SUBCUT SCH (08:44)
[2020-03-09] MEDS: Losartan 25 MG Tab PO SCH (08:44)
[2020-03-09] MEDS: Dutasteride 0.5 MG Cap PO SCH (18:02)
[2020-03-09] MEDS: Tamsulosin 0.4 MG Cap.ER PO SCH (18:02)
[2020-03-09] MEDS: Ferrous Sulfate 325 MG Tab PO SCH (18:02)
[2020-03-09] MEDS: Gabapentin 300 MG Cap PO SCH (20:03)
[2020-03-09] MEDS: Rosuvastatin 5 MG Tab PO SCH (20:03)
[2020-03-09] MEDS: Zolpidem 5 MG Tab PO SCH (21:03)
[2020-03-10] MEDS: Acetaminophen/oxyCODONE 325-5 MG Tab PO PRN ×3 (04:38→12:28)
[2020-03-10] MEDS: Carbidopa/Levodopa 25-100 MG Tab PO SCH ×2 (06:59→09:55)
[2020-03-10] MEDS: metFORMIN 500 MG Tab PO SCH (08:15)
[2020-03-10] MEDS: Carvedilol 12.5 MG Tab PO SCH (08:18)
[2020-03-10] MEDS: Cholecalciferol (Vitamin D3) 25 MCG Tab PO SCH (08:22)
[2020-03-10] MEDS: Naloxegol Oxalate 25 MG Tab PO SCH (08:22)
[2020-03-10] MEDS: Calcium Polycarbophil 625 MG Tab PO SCH (08:23)
[2020-03-10] MEDS: VITAMIN B6 PO SCH (08:24)
[2020-03-10] MEDS: Docusate Sodium 100 MG Cap PO SCH (08:24)
[2020-03-10] MEDS: Aspirin 325 MG Tab.EC PO SCH (08:25)
[2020-03-10] MEDS: Losartan 25 MG Tab PO SCH (08:26)
[2020-03-10] MEDS: Hydrochlorothiazide 25 MG Tab PO SCH (08:26)
[2020-03-10] MEDS: amLODIPine 5 MG Tab PO SCH (08:27)
[2020-03-10] MEDS: Insulin Glargine,Human Rec. Analog 100 Units/ML 3 ML Pen SUBCUT SCH (08:28)
[2020-03-10 09:08] VITALS: BP 114/60; PULSE 76
--- NOTE | 2020-03-10 10:05 | PCM.DCSUM1 ---
Discharge Summary - Hospital Course Diagnosis: Stroke: No - Discharge Data Discharge Date: 03/10/20 Discharge Disposition: Home, Self-Care 01 Condition: Good - Referral to Home Health Primary Care Physician: Farrah Sarmiento MD - Patient Summary/Data Consults: Consultations 03/01/20 18:10 PT Evaluation and Treatment [CONS] Routine - Patient Instructions Diet: Usual Diet as Tolerated Activity: As Tolerated Activity, Other: TLSO brace with activity Driving: Do Not Drive Showering/Bathing: May Shower Wound/Incision, Other: Allow steristrips to fall off. Notify Provider of: Fever, Increased Pain, Swelling and Redness, Drainage - Discharge Plan *PRESCRIPTION DRUG MONITORING PROGRAM REVIEWED*: Yes *COPY OF PRESCRIPTION DRUG MONITORING REPORT IN PATIENT KIM: Yes (Reviewed by Freddie London APRN, CNP in EPIC - 280 score; no concerns) Home Medications: Home Meds Cholecalciferol (Vitamin D3) [Vitamin D3] 2,000 unit PO DAILY 12/02/14 [History] Dutasteride [Avodart] 0.5 mg PO BEDTIME 12/02/14 [History] Insulin Glarg,Human.Rec.Analog [LantUS Solostar] 30 units SUBCUT DAILY 12/02/14 [History] [place]-3 Fatty Acids [[place]-3] 1,000 mg PO DAILY 12/02/14 [History] Tamsulosin [Flomax] 0.8 mg PO BEDTIME 12/02/14 [History] Vitamin B6-pyridOXINE 50 mg PO DAILY 12/02/14 [History] amLODIPine [Norvasc] 10 mg PO DAILY 12/02/14 [History] metFORMIN [Glucophage] 500 mg PO BIDMEALS 12/02/14 [History] hydroCHLOROthiazide [Hydrochlorothiazide] 12.5 mg PO DAILY 01/12/18 [History] Carbidopa/Levodopa [Sinemet 25-100 mg Tablet] 1.5 tab PO 0630,1000,1400,1800 08/27/19 [History] Docusate Sodium [Colace] 200 mg PO DAILY 08/27/19 [History] Ferrous Sulfate [Ferosul] 325 mg PO Q48H 08/27/19 [History] Rosuvastatin [Crestor] 5 mg PO BEDTIME 08/27/19 [History] carvediloL [Coreg] 12.5 mg PO BIDMEALS 08/27/19 [History] Gabapentin [Neurontin] 300 mg PO BEDTIME 02/28/20 [History] Losartan [Cozaar] 25 mg PO DAILY 02/28/20 [History] Sennosides/Docusate Sodium [Senna-S] 1 tab PO BEDTIME 02/28/20 [History] Aspirin 81 mg PO DAILY 03/01/20 [History] calcium polycarbophiL [Fiber Tabs] 1,250 mg PO DAILY 03/01/20 [History] oxyCODONE HCl/Acetaminophen [Oxycodone-Acetaminophen 5-325] 1 - 2 tab PO Q4H PRN 03/01/20 [History] Oxygen Therapy Mode: Room Air - Discharge Summary/Plan Comment DC Time >30 min.: Yes Discharge Summary/Plan Comment: Final Hospital Diagnosis - S/P Lumbar decompression surgery, DOS 02/29/2020. Post-operative pain Chronic SNF problems T2DM; A1c 6.3% Lantus, Metformin, FSBS CAD, CABG, , ASA, completed rehab, successful Hypertension, HCTZ, amlodipine, Coreg, ARB Hyperlipidemia, statin Venous insufficiency Obstructive sleep apnea, home CPAP Insomnia, clonazepam Parkinson's disease, carbidopa levodopa BPH, tamsulosin, Avodart Rheumatoid arthritis History/Summary - 74 y/o gentleman was admitted into [facility] PT/OT patient is s/p lumbar lateral interbody fusion of L2/L4 repeat decompression by Dr. Demarco Mei DOS 02/29/2020. Patient was fit with a custom fabricated TLSO and is to wear while ambulating x6 months Hospital course 03/02/2020; Patient is doing well, some pain in the legs as expected, ambulating with walker, BM this morning, ZACH drain pulled, using TLSO, Running low-grade fevers however this is baseline according to [place] EMR, encouraged to use spirometer, Nurses reporting mild sundowning confusion/hallucinations 03/10/20 - Patient feeling overall well. States he feels comfortable discharging to home today. His is purchasing a walker to be used at home. Patient to wear his TLSO brace with activity, however may remove for using the bathroom to assist with personal hygiene needs per ERWIN Bagley. Patient states he slept well. His pain is controlled with percocet 1 tablet, rates pain 2/10 this morning. He continues to use his incentive spirometer and reaches 2000ml consistently. Medication changes/adjustments upon discharge - - [place] discharged patient on aspirin 81mg, however patient changed back to 324mg per Freddie London s/p CABG. -Movantik was added for OIC during swing bed stay; dc upon discharge Disposition/Follow-up --Continue TLSO precautions; home exercises per physical therapy --Continue incentive spirometer --Follow-up orthopedics appointment with ERWIN Bagley on 03/27/19. --Discharge home today - Mortality Measure Prognosis:: Good - General Info Date of Service: 03/10/20 Functional Status: Reports: Pain Controlled, Tolerating Diet, Ambulating, Incentive Spirometry. Denies: New Symptoms - Review of Systems General: Reports: No Symptoms HEENT: Reports: No Symptoms Pulmonary: Reports: No Symptoms Cardiovascular: Reports: No Symptoms Gastrointestinal: Reports: Constipation. Denies: Nausea, Vomiting Genitourinary: Reports: No Symptoms Musculoskeletal: Reports: Back Pain Skin: Reports: No Symptoms Neurological: Reports: Tremors. Denies: Tingling Psychiatric: Reports: No Symptoms - Patient Data Vitals - Most Recent: Last Vital Signs Temp 97.2 F 03/10/20 09:00 Pulse 76 03/10/20 09:00 Resp 19 03/10/20 09:00 BP 114/60 03/10/20 09:00 Pulse Ox 96 03/10/20 09:00 Weight - Most Recent: 200 lb 1.6 oz I&O - Last 24 hours: Intake & Output 03/09/20 03/10/20 03/10/20 22:59 06:59 14:59 Intake Total 440 200 Balance 440 200 Lab Results - Last 24 hrs: Laboratory Results - last 24 hr 03/10/20 03/10/20 Range/Units 07:15 07:39 WBC 6.95 (5.00-10.00) 10^3/uL RBC 3.70 L (4.50-6.00) 10^6/uL Hgb 11.6 L D (13.0-17.0) g/dL Hct 35.5 L (40.0-52.0) % MCV 95.9 H (82.0-92.0) fL MCH 31.4 H (27.0-31.0) pg MCHC 32.7 (32.0-36.0) g/dL RDW 13.0 (11.5-14.5) % Plt Count 551 H D (150-400) 10^3/uL MPV 8.5 (7.4-10.4) fL POC Glucose 114 H (74-100) mg/dL Med Orders - Current: Current Medications Amlodipine Besylate (Norvasc) 10 mg PO DAILY [facility] Last Admin: 03/10/20 08:27 Dose: 10 mg Documented by: Aspirin (Ecotrin) 325 mg PO DAILY [facility] Last Admin: 03/10/20 08:25 Dose: 325 mg Documented by: Bisacodyl (Dulcolax) 5 - 10 mg PO DAILY PRN PRN Reason: Constipation Calcium Polycarbophil (Fibercon) 1,250 mg PO DAILY [facility] Last Admin: 03/10/20 08:23 Dose: 1,250 mg Documented by: Carbidopa/Levodopa (Sinemet 25-100 Mg) 1.5 tab PO 0630,1000,1400,1800 [facility] Last Admin: 03/10/20 09:55 Dose: 1.5 tab Documented by: Carvedilol (Coreg) 12.5 mg PO BIDMEALS [facility] Last Admin: 03/10/20 08:18 Dose: 12.5 mg Documented by: Cholecalciferol (Vitamin D3) 50 mcg PO DAILY [facility] Last Admin: 03/10/20 08:22 Dose: 50 mcg Documented by: Dextrose/Water (Dextrose 50% In Water) 50 ml IV ASDIRECTED PRN PRN Reason: Hypoglycemia Docusate Sodium (Colace) 200 mg PO DAILY [facility] Last Admin: 03/10/20 08:24 Dose: 200 mg Documented by: Dutasteride (Avodart) 0.5 mg PO DAILY@1800 [facility] Last Admin: 03/09/20 18:02 Dose: 0.5 mg Documented by: Ferrous Sulfate (Ferrous Sulfate) 325 mg PO Q48H [facility] Last Admin: 03/09/20 18:02 Dose: 325 mg Documented by: Gabapentin (Neurontin) 300 mg PO BEDTIME [facility] Last Admin: 03/09/20 20:03 Dose: 300 mg Documented by: Glucagon (Glucagen) 1 mg IM ASDIRECTED PRN PRN Reason: Hypoglycemia Hydrochlorothiazide (Hydrochlorothiazide) 12.5 mg PO DAILY [facility] Last Admin: 03/10/20 08:26 Dose: 12.5 mg Documented by: Insulin Glargine (Lantus Solostar) 30 units SUBCUT DAILY [facility] Last Admin: 03/10/20 08:28 Dose: 30 unit Documented by: Losartan Potassium (Cozaar) 25 mg PO DAILY [facility] Last Admin: 03/10/20 08:26 Dose: 25 mg Documented by: Metformin HCl (Glucophage) 500 mg PO BIDMEALS [facility] Last Admin: 03/10/20 08:15 Dose: 500 mg Documented by: Naloxegol (Movantik) 25 mg PO DAILY [facility] Last Admin: 03/10/20 08:22 Dose: 25 mg Documented by: Oxycodone/Acetaminophen (Percocet 325-5 Mg) 1 - 2 tab PO Q4H PRN PRN Reason: Pain Last Admin: 03/10/20 08:32 Dose: 1 tab Documented by: Vitamin B-6 ( Pyridoxine) 50mg - Ptom 1 each PO DAILY [facility] Last Admin: 03/10/20 08:24 Dose: 1 each Documented by: Ramelteon (Rozerem) 8 mg PO BEDTIME [facility] Last Admin: 03/06/20 20:55 Dose: 8 mg Documented by: Rosuvastatin Calcium (Crestor) 5 mg PO BEDTIME [facility] Last Admin: 03/09/20 20:03 Dose: 5 mg Documented by: Senna/Docusate Sodium (Senna Plus) 1 tab PO BEDTIME [facility] Last Admin: 03/09/20 20:03 Dose: 1 tab Documented by: Tamsulosin HCl (Flomax) 0.8 mg PO DAILY@1800 [facility] Last Admin: 03/09/20 18:02 Dose: 0.8 mg Documented by: Zolpidem Tartrate (Ambien) 5 mg PO BEDTIME [facility] Last Admin: 03/09/20 21:03 Dose: 5 mg Documented by: Discontinued Medications Aspirin (Aspirin) 81 mg PO DAILY [facility] Last Admin: 03/06/20 08:36 Dose: 81 mg Documented by: Aspirin (Aspirin) 324 mg PO DAILY [facility] Last Admin: 03/07/20 08:24 Dose: 324 mg Documented by: Dutasteride (Avodart) 0.5 mg PO BEDTIME [facility] Last Admin: 03/07/20 20:56 Dose: 0.5 mg Documented by: Magnesium Hydroxide (Milk Of Magnesia) 30 ml PO DAILY ONE Stop: 03/08/20 10:30 Last Admin: 03/08/20 10:50 Dose: 30 ml Documented by: Tamsulosin HCl (Flomax) 0.8 mg PO BEDTIME [facility] Last Admin: 03/07/20 20:55 Dose: 0.8 mg Documented by: - Exam General: Reports: Alert, Oriented, Cooperative HEENT: Reports: Pupils Equal, Pupils Reactive Neck: Reports: Supple Lungs: Reports: Clear to Auscultation, Normal Respiratory Effort Cardiovascular: Reports: Regular Rate, Regular Rhythm GI/Abdominal Exam: Normal Bowel Sounds, Soft, Non-Tender (Male) Exam: Deferred Rectal (Males) Exam: Deferred Back Exam: Reports: Other (Healing lumbar incision, mervin have been removed, steristrips intact. No warmth, redness, edema, tenderness on palpation) Skin: Reports: Warm, Dry Wound/Incisions: Reports: Healing Well, No Drainage. Denies: Erythema Neurological: Reports: No New Focal Deficit Psy/Mental Status: Reports: Alert, Normal Affect, Normal Mood
== END 2020-03-10 13:00 | disposition home or self-care (01) | DRG 561 ==
LOC: KA.MS 03-01 16:00 → UNDOADMIN 03-01 16:00 → KA.MS 03-01 18:10
PROVIDERS: ADMIT Nurse Practitioner Family; ATTEND Nurse Practitioner Family
DX: Z47.89 Encounter for other orthopedic aftercare (principal); G89.18 Other acute postprocedural pain; M54.5 Low back pain; E11.9 Type 2 diabetes mellitus without complications; I25.10 Atherosclerotic heart disease of native coronary artery without angina pectoris; I10 Essential (primary) hypertension; E78.5 Hyperlipidemia, unspecified; I87.2 Venous insufficiency (chronic) (peripheral); G47.33 Obstructive sleep apnea (adult) (pediatric); G47.00 Insomnia, unspecified; G20 Parkinson's disease; N40.0 Benign prostatic hyperplasia without lower urinary tract symptoms; M06.9 Rheumatoid arthritis, unspecified; E78.00 Pure hypercholesterolemia, unspecified; G47.30 Sleep apnea, unspecified; K59.09 Other constipation; G89.29 Other chronic pain; M54.9 Dorsalgia, unspecified; E66.9 Obesity, unspecified; E61.1 Iron deficiency; Z96.659 Presence of unspecified artificial knee joint; Z98.890 Other specified postprocedural states; Z95.1 Presence of aortocoronary bypass graft; Z79.82 Long term (current) use of aspirin; Z79.899 Other long term (current) drug therapy; Z99.81 Dependence on supplemental oxygen; Z88.1 Allergy status to other antibiotic agents; Z79.4 Long term (current) use of insulin; Z87.01 Personal history of pneumonia (recurrent); Z86.73 Personal history of transient ischemic attack (TIA), and cerebral infarction without residual deficits; Z79.01 Long term (current) use of anticoagulants; Z87.891 Personal history of nicotine dependence
CPT/HCPCS: 36415; 80053; 82962; 85025; 85027; 97110-GP; 97162-GP; 97530-GP; A9270-GY; J1815-GY

== ENCOUNTER 2020-12-10 06:54 | Day surgery (SDC) | payer MEDICARE, OTHER ==
[2020-12-10] MEDS ORDERED: Midazolam 1 MG/ML 2 ML SDV IV ONE (06:55)
[2020-12-10] MEDS ORDERED: Lidocaine 0.5% 50 ML SDV INJECT ONE (06:55)
[2020-12-10] MEDS ORDERED: Propofol 200 MG/20 ML SDV IV ONE (06:55)
[2020-12-10] MEDS ORDERED: Sodium Chloride 0.9% 10 ML Syringe FLUSH PRN (07:00)
[2020-12-10] MEDS ORDERED: Sodium Chloride 0.9% 1,000 ML IV SCH (07:00)
[2020-12-10] MEDS ORDERED: Bupivacaine 0.5% 10 ML SDV INFILT ONE ×2 (08:46)
[2020-12-10 09:56] VITALS: BP 193/82; PULSE 57
--- NOTE | 2020-12-10 11:17 | PCM.OPNOTE ---
- General Post-Op/Procedure Note Date of Surgery/Procedure: 12/10/20 Operative Procedure(s): Right carpal tunnel decompression. Anesthesia Technique: Regional Block Primary Surgeon: New Sarmiento Complications: None Condition: Good Free Text/Narrative:: INFORMED CONSENT: Patient is here today for elective carpal tunnel repair. All aspects of this procedure have been discussed with the patient. All possible complications also, including possibility of infection, pain, bleeding, assistant manager pt numbness, weakness of the fingers and unknown complications. Anesthetic complications were handled by anesthesia department. The patient understands fully well. Patient did not have any further questions for me at the end of my interview. The patient wishes for me to proceed. PROCEDURE: Patient was kept in the supine position and the satisfactory Andrew block anesthesia was administered. The right arm was thoroughly prepped and draped in the usual fashion. The tourniquet was placed to the right upper arm and a vertical incision was made in the palm directly distal to the distal wrist crease. The skin incision was deepened through the subcutaneous tissue, the palmar aponeurosis was incised and then we came down upon the transverse carpal ligament, which was opened along the line of the skin incision. Extreme care was taken to protect the median nerve below. Careful neurolysis was performed very meticulously. Approximately 2 cc of Marcaine 0.5% was instilled into the wound and skin was closed using mattress sutures with 3.0 Nylon. The tourniquet was released. A sterile pressure dressing was applied. The patient tolerated the procedure well and was transferred to the recovery room in excellent condition.
== END 2020-12-10 10:50 | disposition home or self-care (01) ==
LOC: KA.SDS 06:54
PROVIDERS: ATTEND Family Medicine
DX: G56.03 Carpal tunnel syndrome, bilateral upper limbs (principal); G56.21 Lesion of ulnar nerve, right upper limb; L72.0 Epidermal cyst; E11.42 Type 2 diabetes mellitus with diabetic polyneuropathy; E78.00 Pure hypercholesterolemia, unspecified; I12.9 Hypertensive chronic kidney disease with stage 1 through stage 4 chronic kidney disease, or unspecified chronic kidney disease; E11.22 Type 2 diabetes mellitus with diabetic chronic kidney disease; E11.51 Type 2 diabetes mellitus with diabetic peripheral angiopathy without gangrene; N18.9 Chronic kidney disease, unspecified; G47.33 Obstructive sleep apnea (adult) (pediatric); G47.00 Insomnia, unspecified; E66.3 Overweight; Z79.899 Other long term (current) drug therapy; Z88.8 Allergy status to other drugs, medicaments and biological substances; Z68.32 Body mass index [BMI] 32.0-32.9, adult
CPT/HCPCS: 01810; 82947; J2250; J2704; J3490; J7030

== ENCOUNTER 2022-04-08 05:45 | Observation (INO) | payer MEDICARE, OTHER ==
[2022-04-08] MEDS ORDERED: Sodium Chloride 0.9% 10 ML Syringe FLUSH PRN (06:08)
[2022-04-08] MEDS ORDERED: Sodium Chloride 0.9% 1,000 ML IV ONE (06:08)
[2022-04-08 06:42] LABS: ANION GAP 8.5 mmol/L (5-15)
[2022-04-08] MEDS ORDERED: Iopamidol 755 Mg/ML 75 ML Bottle IVPUSH ONE (07:43)
[2022-04-08] MEDS ORDERED: Sodium Chloride 0.9% 100 ML IV SCH (07:45)
[2022-04-08] MEDS ORDERED: ALPRAZOLAM 0.5 MG PO PRN (10:40)
[2022-04-08] MEDS ORDERED: Magnesium Hydroxide 400 MG/5 ML Susp 30 ML Cup PO PRN (10:40)
[2022-04-08] MEDS ORDERED: Carvedilol 12.5 MG Tab PO SCH (10:41)
[2022-04-08] MEDS ORDERED: Dutasteride 0.5 MG Cap PO SCH (10:45)
[2022-04-08] MEDS ORDERED: METFORMIN 500 MG PO SCH (10:55)
[2022-04-08] MEDS: LEVODOPA PO SCH ×3 (11:04→18:11)
[2022-04-08] MEDS: CARBIDOPA PO SCH ×3 (11:04→18:11)
[2022-04-08] MEDS ORDERED: LOSARTAN 50 MG PO SCH (12:00)
[2022-04-08] MEDS: Docusate Sodium 100 MG Cap PO SCH (12:25)
[2022-04-08] MEDS: Aspirin 81 MG Tab.Chew PO SCH (12:26)
[2022-04-08] MEDS: LACTULOSE 10 GM/15 ML PO SCH (12:26)
[2022-04-08] MEDS: ROSUVASTATIN 10 MG PO SCH (12:27)
[2022-04-08] MEDS: CARVEDILOL 12.5 MG PO SCH (18:08)
[2022-04-08] MEDS: Acetaminophen 650 MG Tab.ER PO PRN (18:56)
[2022-04-08] MEDS ORDERED: Non-Formulary Medication 1 Each (Iron,Carbonyl/Ascorbic Acid [Vitron-C Tablet] 1 EACH Tabl PO SCH (21:00)
[2022-04-08] MEDS ORDERED: Gabapentin 300 MG Cap PO SCH (21:00)
[2022-04-08] MEDS: SERTRALINE 50 MG PO SCH (21:14)
[2022-04-08] MEDS: PTOM-Gabapentin 300 MG Cap PO SCH (21:14)
[2022-04-08] MEDS: TAMSULOSIN 0.4 MG PO SCH (21:14)
[2022-04-08] MEDS ORDERED: Labetalol 100 MG Tab PO ONE ×2 (21:49→23:02)
[2022-04-08] MEDS ORDERED: Acetaminophen/HYDROcodone 325-5 MG Tab PO ONE (21:50)
[2022-04-09] MEDS: CARBIDOPA PO SCH ×4 (06:33→17:57)
[2022-04-09] MEDS: LEVODOPA PO SCH ×4 (06:33→17:57)
[2022-04-09 07:36] LABS: ANION GAP 8.4 mmol/L (5-15)
[2022-04-09] MEDS: CARVEDILOL 12.5 MG PO SCH ×2 (08:59→17:58)
[2022-04-09] MEDS: Aspirin 81 MG Tab.Chew PO SCH (09:00)
[2022-04-09] MEDS: Docusate Sodium 100 MG Cap PO SCH (09:03)
[2022-04-09] MEDS: DUTASTERIDE 0.5 MG PO SCH (09:03)
[2022-04-09] MEDS: ROSUVASTATIN 10 MG PO SCH (09:04)
[2022-04-09] MEDS: LACTULOSE 10 GM/15 ML PO SCH (09:08)
[2022-04-09] MEDS: Insulin Glargine,Hum.Rec.Anlog 100 UNIT/ML 3 ML Pen SUBCUT SCH (09:13)
[2022-04-09] MEDS ORDERED: Losartan 50 MG Tab PO ONE (10:41)
[2022-04-09] MEDS: SERTRALINE 50 MG PO SCH (20:46)
[2022-04-09] MEDS: PTOM-Gabapentin 300 MG Cap PO SCH (20:46)
[2022-04-09] MEDS: Acetaminophen 650 MG Tab.ER PO PRN (20:47)
[2022-04-09] MEDS: TAMSULOSIN 0.4 MG PO SCH (20:47)
[2022-04-10] MEDS: LEVODOPA PO SCH ×2 (06:31→09:49)
[2022-04-10] MEDS: CARBIDOPA PO SCH ×2 (06:31→09:49)
[2022-04-10] MEDS: CARVEDILOL 12.5 MG PO SCH (08:19)
[2022-04-10] MEDS: Insulin Glargine,Hum.Rec.Anlog 100 UNIT/ML 3 ML Pen SUBCUT SCH (08:19)
[2022-04-10] MEDS: Aspirin 81 MG Tab.Chew PO SCH (08:20)
[2022-04-10] MEDS: Docusate Sodium 100 MG Cap PO SCH (08:20)
[2022-04-10] MEDS: LACTULOSE 10 GM/15 ML PO SCH (08:22)
[2022-04-10] MEDS: DUTASTERIDE 0.5 MG PO SCH (08:22)
[2022-04-10] MEDS: ROSUVASTATIN 10 MG PO SCH (08:23)
[2022-04-10 14:33] VITALS: BP 152/65; PULSE 69
== END 2022-04-10 13:08 | disposition home or self-care (01) ==
LOC: KA.ED 05:45 → KA.MS 08:52
PROVIDERS: ADMIT Physician Assistant Medical; ATTEND Nurse Practitioner Family
DX: R55 Syncope and collapse (principal); G20 Parkinson's disease; I12.9 Hypertensive chronic kidney disease with stage 1 through stage 4 chronic kidney disease, or unspecified chronic kidney disease; N18.31 Chronic kidney disease, stage 3a; E11.43 Type 2 diabetes mellitus with diabetic autonomic (poly)neuropathy; E11.22 Type 2 diabetes mellitus with diabetic chronic kidney disease; K59.00 Constipation, unspecified; E78.00 Pure hypercholesterolemia, unspecified; I65.23 Occlusion and stenosis of bilateral carotid arteries; N28.9 Disorder of kidney and ureter, unspecified; I25.10 Atherosclerotic heart disease of native coronary artery without angina pectoris; I73.9 Peripheral vascular disease, unspecified; N40.1 Benign prostatic hyperplasia with lower urinary tract symptoms; R30.9 Painful micturition, unspecified; D50.9 Iron deficiency anemia, unspecified; F41.1 Generalized anxiety disorder; G47.33 Obstructive sleep apnea (adult) (pediatric); L57.0 Actinic keratosis; E66.9 Obesity, unspecified; Z86.73 Personal history of transient ischemic attack (TIA), and cerebral infarction without residual deficits; Z95.1 Presence of aortocoronary bypass graft; Z79.899 Other long term (current) drug therapy; Z79.84 Long term (current) use of oral hypoglycemic drugs; Z79.4 Long term (current) use of insulin; Z88.1 Allergy status to other antibiotic agents; Z88.8 Allergy status to other drugs, medicaments and biological substances
CPT/HCPCS: 36415; 70450; 71045; 71275; 80048; 80053; 82947; 84484; 85025; 85379; 93005; 93010; 96360; 99284; 99285-25; A9270-GY; G0378; J7030; Q9967